=== PATIENT | male | born 1955 | race Caucasian/White ===

== ENCOUNTER 2021-04-29 23:59 | Inpatient (IN) | payer OTHER, MEDICAID ==
[~2021-04-29] VITALS: Ht 182.9 cm; Wt 90.3 kg
--- NOTE | ~2021-04-29 | EEG ---
[facility] [place] [address] ELECTROENCEPHALOGRAM Name: RAYSA ALVAREZ Room #: 248-P ADM IN M.R.#: [id number] Admission: 04/30/21 Attend Phys: Kari Jeffery MD Discharge: Date of : 55 Report #: [id number] THIS REPORT FOR: //name// DATE OF SERVICE: 04/30/2021 This patient has a question of seizure. EEG was done by placing the electrode by standard 10-20 system of electrode placement. Both referential and sequential montages were used for recording. Background activity in this patient's EEG is poorly formed and disorganized. It is about 7-8 Hz and 30 microvolt. The patient demonstrated frontally predominant triphasic waves. Photic stimulation is unremarkable. IMPRESSION: This is an abnormal EEG demonstrating triphasic waves. They typically occur with encephalopathy, but other etiologies should be excluded. Thank you very much for this referral. By: [id number] Junior Lacey MD /nt
--- NOTE | ~2021-04-29 | HC ---
[facility] [place] [place] [place] [address] CONSULTATION Name: RAYSA ALVAREZ Room #: 248-P ADM IN M.R.#: [id number] Admission: 04/30/21 Attend Phys: Krai Jeffery MD Discharge: Date of : 55 Report #: [id number] THIS REPORT FOR: cc: HERBERTH MISHRA FAM - No family physician/PCP Junior Lacey MD ~ DATE OF SERVICE: 04/30/2021 HISTORY OF PRESENT ILLNESS: A 65-year-old male patient who is not able to provide any history at all. I called the patient's , whose number is in the computer. She did not turkey picker the phone. I talked to the nurses and reviewed the records, which is mainly H and P at the moment. It looks like the patient was admitted to [facility] with aggressive behavior and altered mental status. Looks like he became better after intubation. I do not know what his baseline status is and I cannot find anybody because anybody who can tell me that. Review of system is from the record, he has a history of anxiety, arrhythmia. One of the records indicate has a history of dementia, chronic back pain, coronary artery disease, hyperlipidemia, CT, COPD. He was apparently more confused. One of the records says that he has a permanent pacemaker, and bilateral knee replacement. REVIEW OF SYSTEMS: Limited with that, although I looked for 14-point review of system. PAST MEDICAL HISTORY: Difficult to tell. He said he did not have a stroke before, but he is not reliable. FAMILY HISTORY: Similar. He denies any stroke. SOCIAL HISTORY: He says he drinks alcohol very rarely, but he smokes. NEUROLOGIC: He is alert. He is responsive. He cannot tell me what hospital he is in. When asked who the president is, he says it is Trump. Cranial nerve examination and neuromuscular examination does not appear to be showing any focality. He says he can feel both sides with reflexes are somewhat diminished. I could not look at the fundus. It did not do the cerebellar sign for me. CARDIAC EXAMINATION: Indicate hemodynamic stability. No respiratory difficulty was noted, but scattered rhonchi present. White count is 11.5. Pulses are difficult to feel. He has no edema, cyanosis or jaundice. He is a well-built individual. No carotid bruit. No thyroid mass. He does not have any dysmorphic features of eyes, ears and face. His vision and hearing looks adequate. I understand from the records, he already had a CT and even CTA at [facility] and that was unremarkable. I do not have any of those films. [address] [address] CONSULTATION Name: RAYSA ALVAREZ Room #: 248-P [facility] IN M.R.#: [id number] Admission: 04/30/21 Attend Phys: Kari Jeffery MD Discharge: Date of : 55 Report #: [id number] IMPRESSION: I do not see any neurological etiology, which can cause the patient's symptoms. I suspect he has respiratory problems which affected the brain secondarily. I will get an EEG done and I will continue to try to reach the family to see if he has a pacemaker that is compatible with MRI or not and what kind of baseline status he has, also if he drink any more alcohol than he tells us. Thank you very much for this referral and we will also try to reach the patient's again. By: [id number] Junior Lacey MD /nt
--- NOTE | ~2021-04-29 | EEG ---
[facility] [place] [place] [address] ELECTROENCEPHALOGRAM Name: RAYSA ALVAREZ Room #: 248-P ADM IN M.R.#: [id number] Admission: 04/30/21 Attend Phys: Moises Dowell MD Discharge: Date of : 55 Report #: [id number] THIS REPORT FOR: //name// DATE OF SERVICE: 05/02/2021 This patient was evaluated for a followup office previously abnormal EEG. EEG now shows background activity of about 6-7 Hz and 30 microvolt. The patient went to sleep that is associated with bilateral slowing and vertex sharp waves. Photic stimulation is unremarkable. Triphasic waves has disappeared. IMPRESSION: Almost complete disappearance of the triphasic waves. EEG is still abnormal because it is slow and poorly formed, that can be consistent with dementia, effect of psychotropic medication, etc. Clinical correlation is recommended. By: [id number] Junior Lacey MD /nt
[2021-04-30] VITALS (19 sets, daily range): BP systolic 114–194; BP diastolic 64–92
[2021-04-30 03:20] LABS: BE(vivo) 2.6 mmol/L (-2 to +3); HCO3 26.7 mmol/L (22.0-26.0); PCO2 39.5 mmHg (35.0-45.0); PO2 139.7 mmHg (80.0-100.0); pH 7.448 (7.360-7.450); sO2 98.9 % (92.0-98.0)
[2021-04-30] MEDS ORDERED: TRIAMTERENE/HCT1 CA1 PO (04:49)
[2021-04-30] MEDS ORDERED: MYRBETRIQ25 MG PO (04:50)
[2021-04-30] MEDS ORDERED: FLOMAX0.4 MG PO (04:51)
[2021-04-30] MEDS ORDERED: FINASTERIDE5 MG PO (04:52)
[2021-04-30] MEDS ORDERED: LISINOPRIL5 MG PO (04:53)
[2021-04-30] MEDS ORDERED: HYDROXYZINE PAM25 M1 PO (04:55)
[2021-04-30] MEDS ORDERED: MISOPROSTOL 2200 MC1 PO (04:56)
[2021-04-30] MEDS ORDERED: LIPITOR 20 MG T20 M1 PO (04:57)
[2021-04-30] MEDS ORDERED: PERCOCET 10-321 EAC1 PO (05:00)
[2021-04-30] MEDS ORDERED: NEURONTIN 400M400 M2 PO (05:01)
[2021-04-30] MEDS ORDERED: BACLOFEN20 MG PO (05:02)
[2021-04-30] MEDS ORDERED: IBU800 MG PO (05:04)
[2021-04-30] MEDS ORDERED: MOVANTIK25 MG PO (05:05)
[2021-04-30] MEDS ORDERED: LINZESS290 MCG PO (05:06)
[2021-04-30] MEDS ORDERED: AMITRIPTYLINE H50 M2 PO (05:25)
[2021-04-30 05:35] LABS: HEMATOCRIT 43.8 % (42.0-52.0); HEMOGLOBIN 14.8 gm/dL (14.0-18.0); MCH 34.1 pg (26.0-34.0); MCHC 33.8 g/dL (28.0-37.0); MCV 100.6 fL (80.0-100.0); RBC 4.35 mil/uL (4.50-6.00); WBC 11.5 thou/uL (4.0-11.0)
[2021-04-30 06:01] LABS: CREATININE 1.2 mg/dL (0.7-1.3); MAGNESIUM 1.6 mg/dL (1.8-2.4); POTASSIUM 3.3 mmol/L (3.5-5.1)
--- NOTE | 2021-04-30 07:35 | NUR ---
RECEIVED PT DIRECT ADMIT FROM [facility]. PT ARRIVED INTUBATED -PLACED ON VENT. PROPOFOL AND MAINT IV'S INFUSING. PT WILL AWAKEN TO VOICE, RESTLESS, SIT UP IN BED AND TRY TO PULL OUT ETT. SPOKE WITH NIKKI ON PHONE REGARDING PT STATUS, RESTRAINT EDUCATION, VISITING POLICY, PLAN OF CARE AT THIS TIME. SEE [facility] FOR ASSESSMENT/VS
--- NOTE | 2021-04-30 09:00 | NUR ---
Chart review, Discussed during am unit rounds and los with hospitalist. DX status epilepticus. Direct from [facility] intubated. Unable to visit with Marianne r/t adela, Cpap trials. Left message with Jennifer # [phone], requested call back. Lives at home with . Will cont. following as needed for dc needs.
[2021-04-30 09:24] LABS: BE(vivo) 3.1 mmol/L (-2 to +3); PCO2 39.1 mmHg (35.0-45.0); PO2 126.4 mmHg (80.0-100.0); pH 7.457 (7.360-7.450); sO2 98.7 % (92.0-98.0)
--- NOTE | 2021-04-30 10:33 | NUR ---
ASSUMED CARE OF PT AT 0700. DR. CHUNG AT BEDSIDE AT 0830. VERBAL ORDERS GIVEN. WILL FOLLOW POC.
--- NOTE | 2021-04-30 12:14 | NUR ---
ASSUMED CARE OF PATIENT 0600 ON VENTILATOR SETTINGS 18/500/.50 +5. PLACED PATIENT ON CPAP TRIAL AT 0850 8/5 FIO2 40%. AT 0924 PATIENT TRIAL HAD CONCLUDED AND AN ABG DRAWN WITHIN NORMAL LIMITS, RBI 24 AND NIF -32. RESULTS WERE GIVEN TO DR CHUNG AND EXTUBATION ORDER WAS GIVEN. EXTUBATED AT 1125 TO 3LNC- PRIOR TO SCHIFT CHANGE PATIENT WAS ON ROOM AIR 96%
--- NOTE | 2021-04-30 12:22 | NUR ---
ASSUMED CARE OF PT AT 0700. PT PLACED ON CPAP TRIAL AT APPROXIMATELY 0800. DR CHUNG INFORMED OF PT STATUS IN ROUNDS AT APPROXIMATELY 0910. AND WAS SWITCHED FROM PROPOFOL TO PRECEDEX. TOLERATED CHANGE WELL. EXTUBATED FOLLOWING ABG RESULTS. PT PLACED ON 2L NC. UA SENT PER DR ATKINS AT 1100 DUE TO PT REACHING AND PULLING ON PENIS. WILL CONTINUE TO MONITOR.
[2021-04-30 13:34] LABS: URINE BLOOD 3+ (Negative); URINE CLARITY CLEAR; URINE COLOR YELLOW; URINE GLUCOSE-RANDOM* NEGATIVE (Negative); URINE KETONES TRACE (Negative); URINE LEUKOCYTES-REFLEX NEGATIVE (Negative); URINE NITRITE-REFLEX NEGATIVE (Negative); URINE PROTEIN (DIPSTICK) 1+ (Negative); URINE SPECIFIC GRAVITY 1.015 (1.005-1.035)
[2021-04-30 13:41] LABS: ICTOTEST (BILI CONFIRMATORY) Negative (Negative); URINE BILIRUBIN NEGATIVE (Negative)
[2021-04-30 15:02] LABS: BACTERIA-REFLEX 1-9 Few /HPF (None Seen); CASTS None Seen /LPF (None Seen); CRYSTALS None Seen /LPF (None Seen); SQUAMOUS 0-3 Few /LPF (0-3); URINE RBC >20 Many /HPF (NONE SEEN); URINE WBC-REFLEX 0-5 Rare /HPF (0-5)
[2021-04-30 18:42] LABS: ALBUMIN 3.5 g/dL (3.4-5.0); TOTAL BILIRUBIN 0.8 mg/dL (0.2-1.0); TOTAL PROTEIN 7.3 g/dL (6.4-8.2)
[2021-04-30 21:17] LABS: ALBUMIN 3.3 g/dL (3.4-5.0); CALCIUM 8.6 mg/dL (8.5-10.1); CREATININE 1.1 mg/dL (0.7-1.3); POTASSIUM 3.3 mmol/L (3.5-5.1); TOTAL PROTEIN 6.9 g/dL (6.4-8.2)
--- NOTE | 2021-04-30 22:06 | NUR ---
1999 - UPON INITIAL ASSESSMENT THIS RN NOTED RIGHT ARM SEVERELY SWOLLEN, UPON CLOSER INSPECTION ARM WAS COLD AND WHEEPING AROUND RIGHT AC IV INSERTION SITE. FLUIDS WERE STOPPED. PHARMACY CALLED AND NOTIFIED OF IV INFILTRATION. PER PHARMACY, DUE TO MEDICATIONS INFUSING IN THE IV PT WILL NEED COLD COMPRESS TO ARM. IV REMOVED AND COLD COMPRESS APPLIED.
[2021-05-01] VITALS (25 sets, daily range): BP systolic 147–207; BP diastolic 70–127
--- NOTE | 2021-05-01 12:07 | NUR ---
VAT CONSULTED FOR CVAD. DISCUSSED BENEFITS AND RISK OF IJ WITH PT, VERBALIZED UNDERSTANDING. RIJ WAS WIDELY PATENT WITH USG. 6FR TL JACC 25CM INSERTED TO 8CM EXTERNAL WITH BRISK BR. STAT CXR ORDERED. PT TOLERATED WELL.
[2021-05-01 12:45] LABS: HEMATOCRIT 42.6 % (42.0-52.0); HEMOGLOBIN 14.7 gm/dL (14.0-18.0); MCH 33.7 pg (26.0-34.0); MCHC 34.4 g/dL (28.0-37.0); RBC 4.35 mil/uL (4.50-6.00); WBC 8.2 thou/uL (4.0-11.0)
[2021-05-01 13:01] LABS: CALCIUM 8.7 mg/dL (8.5-10.1); CREATININE 0.9 mg/dL (0.7-1.3); MAGNESIUM 1.5 mg/dL (1.8-2.4)
[2021-05-01 13:02] LABS: POTASSIUM 2.2 mmol/L (3.5-5.1)
[2021-05-01 21:04] LABS: CALCIUM 8.7 mg/dL (8.5-10.1); CREATININE 0.9 mg/dL (0.7-1.3)
[2021-05-01 21:11] LABS: POTASSIUM 2.8 mmol/L (3.5-5.1)
--- NOTE | 2021-05-01 21:33 | NUR ---
PT'S CALLED UNIT FOR UPDATE. UPDATED ON POC. SHE IS NOW TALKING ON PHONE WITH PT.
[2021-05-02] VITALS (28 sets, daily range): BP systolic 133–194; BP diastolic 49–109
--- NOTE | 2021-05-02 03:25 | NUR ---
PT IS ORIENTED TO PERSON AND SOMETIMES PLACE. HE IS OFTEN FORGETFUL BUT EASILY REORIENTED. HE HAS BEEN CALM AND COOPERATIVE THIS SHIFT. C/O CHRONIC BACK PAIN. PRN FENTANYL GIVEN FOR PAIN. PRN HYDRALAZINE GIVEN FOR HTN, WITH SOME IMPROVEMENT IN BP. IV POTASSIUM GIVEN FOR HYPOKALEMIA. WILL RECHECK LABS THIS AM. PT HAD 2 LARGE LOOSE BOWEL MOVEMENTS DURING THE NIGHT. HALL TO DD WITH GOOD URINE OUTPUT. FALL PRECAUTIONS IN PLACE. PROGRESSING SLOWLY TOWARD POC GOALS. WILL MONITOR FURTHER.
[2021-05-02 05:32] LABS: HEMATOCRIT 41.6 % (42.0-52.0); HEMOGLOBIN 14.3 gm/dL (14.0-18.0); MCH 33.8 pg (26.0-34.0); MCHC 34.3 g/dL (28.0-37.0); MCV 98.5 fL (80.0-100.0); RBC 4.22 mil/uL (4.50-6.00); RDW 16.3 % (10.5-14.5); WBC 9.5 thou/uL (4.0-11.0)
[2021-05-02 06:19] LABS: CALCIUM 8.4 mg/dL (8.5-10.1); MAGNESIUM 1.6 mg/dL (1.8-2.4)
[2021-05-02 06:25] LABS: POTASSIUM 2.6 mmol/L (3.5-5.1)
--- NOTE | 2021-05-02 10:42 | NUR ---
PT IS CALM AND COOPERATIVE THIS MORNING. A/O TO SELF AND CURRENT YEAR. EEG WAS PERFORMED THIS MORNING. PT CALLED FOR AN UPDATE AT 1030. PT IS CURRENTLY SPEAKING WITH PT VIA PHONE. BP IS ELEVATED AT 194/101. DR SANFORD WAS CONTACTED VIA [employer] TEXT. PT HAD PRN HYDRALAZINE ON OCT BUT NOT DUE UNTIL 1200. WILL CONTINUE TO MONITOR.
--- NOTE | 2021-05-02 13:42 | NUR ---
65-year-old male continues treatment for: Acute hypoxic respiratory failure, Acute metabolic encephalopathy with underlying dementia, Hypokalemia/hypomagnesemia. Patient was accepted in transfer from [facility] on a ventilator. Per and next of kin Jennifer Erickson at [phone] patient was found to have new onset confusion with AMS and became combative when taken to [facility] and Ketamine was given. At that time the patient was in respiratory distress, was intubated and sent to [place]. Neuro spoke with spouse on 05-01 who reports increase in memory problems in June of 2020 especially with short term memory. The spouse at this time did not wish to proceed with an LP and neuro is following serial EEG's. Per attending AM MD review: Patient continues to be becoming more alert and speaking. CM asked for orders for therapy to evaluate needs for discharge planning purposes. CM continues to follow MD's direction for care and transition and will intervene as needs are identified.
--- NOTE | 2021-05-02 18:06 | NUR ---
PT IS A&O TO SELF AND WHY HE IS HERE. PT THINKS HE IS AT [facility]. REORIENTED PT TO PLACE. PT TRANSFERRED FROM ICU. CENTRAL LINE IN RIGHT IJ IS INTACT. SCDS ARE ON PT. PLACED PT ON MONITOR AND IS CURRENTLY V PACED. LUNG SOUNDS ARE DIMINSHED THROUGHOUT. 1+ EDEMA TO RUE. PT WAS A 1 PERSON ASSIST TRANSFER FROM WHEELCHAIR TO BED. PT GIVEN URINAL FOR WHEN HE NEEDS TO URINATE. HALL WAS REMOVED BEFORE ARRIVAL TO ROOM 208. NO COMPLAINTS OF DISCOMFORT AT THIS TIME. CALL LIGHT WITHIN REACH.
[2021-05-03 07:18] LABS: HEMATOCRIT 39.7 % (42.0-52.0); HEMOGLOBIN 13.4 gm/dL (14.0-18.0); MCH 33.4 pg (26.0-34.0); MCHC 33.8 g/dL (28.0-37.0); MCV 98.8 fL (80.0-100.0); RBC 4.02 mil/uL (4.50-6.00); RDW 16.8 % (10.5-14.5); WBC 8.4 thou/uL (4.0-11.0)
[2021-05-03 07:26] LABS: CALCIUM 8.9 mg/dL (8.5-10.1); MAGNESIUM 1.9 mg/dL (1.8-2.4)
[2021-05-03 07:31] LABS: POTASSIUM 2.8 mmol/L (3.5-5.1)
[2021-05-03 08:30] VITALS: BP 175/70
[2021-05-03 11:07] VITALS: BP 178/78; BP 179/78
--- NOTE | 2021-05-03 13:19 | NUR ---
PHARMACY IN STRUCTED TO GIVE VANCOMYCIN.
[2021-05-03 15:00] VITALS: BP 187/92
--- NOTE | 2021-05-03 16:26 | NUR ---
Case opened to follow for dc planning. [employer] visited with the pt at bedside this am and with his luis via phone. Pt's mental status is improving and he is now on room air. He was able to answer most assessment questions but thinks he is at [facility]. He lives in an apt with his Luis and they stay on the main level with 3-4 steps to enter. They have friends "like family" who stay in the upstairs level who are supportive and helpful. The pt nor his drive and rely on friends or [place] med[place] for transport to medical appts. The pt's pcp is Dr. Julio C Good. The pt was indep with gait and adl's prior to admission. He helps with the cooking and furnace feeder. He has a rwalker and cane if needed at al. The pt is not receptive to acute rehab or SNF at al. He may be open to HH followup and his is receptive to this as well with no preference. Address updated in [place]: [address] [place] [address] Face sheet faxed to admitting for update. Possible dc 1-2 days. Referral faxed and called to [facility] as they service this area. Will follow.
--- NOTE | 2021-05-03 17:28 | NUR ---
TECH REPORTED TODAY THAT PT MIGHT HAVE SLIGHT FACIAL DROOP. ASSESS PT AND COMPLETE NIH STROKE ASSESSMENT WHICH EAS 0. CONTACT DR. SANFORD TO INFORM. WILL CONTINUE TO ASSESS.
[2021-05-03 20:02] VITALS: BP 190/87
[2021-05-03 23:28] VITALS: BP 139/56
[2021-05-04 05:15] VITALS: BP 162/71
[2021-05-04 05:26] LABS: HEMATOCRIT 36.4 % (42.0-52.0); HEMOGLOBIN 12.4 gm/dL (14.0-18.0); MCH 33.6 pg (26.0-34.0); MCV 98.8 fL (80.0-100.0); RBC 3.68 mil/uL (4.50-6.00); RDW 16.2 % (10.5-14.5); WBC 7.4 thou/uL (4.0-11.0)
[2021-05-04 05:38] LABS: ALBUMIN 2.9 g/dL (3.4-5.0); CALCIUM 8.6 mg/dL (8.5-10.1); CREATININE 0.9 mg/dL (0.7-1.3); TOTAL BILIRUBIN 1.2 mg/dL (0.2-1.0); TOTAL PROTEIN 5.9 g/dL (6.4-8.2)
[2021-05-04 05:39] LABS: POTASSIUM 2.8 mmol/L (3.5-5.1)
[2021-05-04 12:29] VITALS: BP 162/71
--- NOTE | 2021-05-04 12:31 | NUR ---
Possible dc home today with . [facility] can accept. CM to fax orders to [phone] when completed.
[2021-05-04 13:40] VITALS: BP 155/88
[2021-05-04] MEDS ORDERED: XARELTO10 MG PO (15:02)
[2021-05-04] MEDS ORDERED: AUGMENTIN 875-1 EACH PO (15:04)
[2021-05-04] MEDS ORDERED: KEPPRA 500 MG500 M1 PO (15:05)
[2021-05-04 16:00] VITALS: BP 144/76
--- NOTE | 2021-05-04 16:24 | NUR ---
PT DISCHARGED TO HOME. CENTRAL LINE REMOVED, IV REMOVED, PT TOLERATED WELL. DISCHARGE INSTRUCTIONS EXPLAINED TO PT. PT STATED HE UNDERSTOOD. CURRENTLY WAITING ON PT SPOUSE TO PICK HIM UP.
--- NOTE | 2021-05-04 18:23 | NUR ---
PT LEFT WITH SPOUSE AT 1755. WHEELCHAIR TO CAR.
== END 2021-05-04 18:43 | disposition home health service (06) | DRG 208 ==
LOC: 2N 23:59 → ICU 04-30 02:42 → 2N 05-02 17:39
PROVIDERS: Nurse Practitioner Family; Pediatrics; Psychiatry & Neurology Neuromuscular Medicine; ADMIT Internal Medicine; ATTEND Internal Medicine
PROC: 0BH17EZ Insertion of Endotracheal Airway into Trachea, Via Natural or Artificial Opening (ICD-10-PCS; principal; 2021-04-30)
PROC: 5A1935Z Respiratory Ventilation, Less than 24 Consecutive Hours (ICD-10-PCS; principal; 2021-04-30)
PROC: 02HV33Z Insertion of Infusion Device into Superior Vena Cava, Percutaneous Approach (ICD-10-PCS; 2021-05-01)
DX: J96.01 Acute respiratory failure with hypoxia (principal); J18.9 Pneumonia, unspecified organism; G93.41 Metabolic encephalopathy; E87.0 Hyperosmolality and hypernatremia; E87.2 Acidosis; J44.0 Chronic obstructive pulmonary disease with (acute) lower respiratory infection; J44.1 Chronic obstructive pulmonary disease with (acute) exacerbation; F41.9 Anxiety disorder, unspecified; I25.10 Atherosclerotic heart disease of native coronary artery without angina pectoris; I10 Essential (primary) hypertension; G89.29 Other chronic pain; M54.9 Dorsalgia, unspecified; F03.90 Unspecified dementia, unspecified severity, without behavioral disturbance, psychotic disturbance, mood disturbance, and anxiety; E78.5 Hyperlipidemia, unspecified; E87.6 Hypokalemia; Z96.653 Presence of artificial knee joint, bilateral; E83.42 Hypomagnesemia; Z79.899 Other long term (current) drug therapy; I25.2 Old myocardial infarction; Z95.0 Presence of cardiac pacemaker; Z95.1 Presence of aortocoronary bypass graft; Z88.8 Allergy status to other drugs, medicaments and biological substances
CPT/HCPCS: 10078; 10081; 10797